=== PATIENT | female | born 1995 | race Caucasian/White ===

== ENCOUNTER 2017-11-11 08:39 | Emergency (ER) | payer OTHER, SELFPAY ==
[2017-11-11 08:40] VITALS: BP 144/82; PULSE 70; RESP 16; TEMP 36.6; O2SAT 99; BMI 23.3
--- NOTE | 2017-11-11 08:52 | ED.VISSUMM ---
- ER Visit Summary Date of Service: 11/11/17 Chief Complaint: Dysuria History of Present Illness: The patient is a 21 F prior history UTIs. 2 day history of dysuria. Denies any vaginal bleeding or discharge. No fever. No back pain. States her last menstrual period was a week ago. Was at the [facility] earlier today at their wellness center states that they dipped her urine that showed white cells. They had no physician available today so they sent her up to the emergency department. Physical Examination: Well-appearing young female. Vital signs are stable and afebrile. H EENT exam unremarkable. Neck nontender. Lungs clear to auscultation bilaterally. Heart regular rate and rhythm no murmur. Abdomen soft and nontender. Normal bowel sounds no peritoneal signs. Moving all 4 extremities. Neurovascular intact. Back nontender. Neurologically awake alert no focal motor deficits. Test Results: Urinalysis shows rare bacteria positive nitrates and gross blood. The microscopic this unremarkable with no white cells or red cells. Emergency Department Course and Treatment: Due to the patient's history of frequent UTIs I will treat her even at the very questionable urinalysis. She will be started on Bactrim 1 pill twice daily for 5 days 10 no refill. Also Pyridium. Treatment Plan: Bactrim and Pyridium. Disposition: Discharge Impression: Acute cystitis This note was generated with [employer] dictation software. It may contain incorrect words, spelling, and punctuation that were not noted in review of the chart prior to signing ED Disposition - Plan for ED Patient: Disposition: Home or Assisted Living Chief Complaint: Complaint Instructions: ED UTI Cystitis Female Prescriptions: Smz/Tmp Ds [Bactrim Ds] 1 tab PO BID #10 tab Referrals: Lane Macdonald MD [STAFF PHYSICIAN] - 1 Week if not improving Additional Instructions: Plenty of water and cranberry juice. Tylenol or Motrin for fever. Bactrim 1 pill twice a day for 5 days. Follow-up if not improving or return to ER if feeling worse.
--- NOTE | 2017-11-11 08:55 | ED.DEP ---
ED Disposition - Plan for ED Patient: Disposition: Home or Assisted Living Chief Complaint: Complaint Instructions: ED UTI Cystitis Female Prescriptions: Phenazopyridine HCl [Pyridium] 200 mg PO Q8H PRN PRN #6 tab PRN Reason: dysuria Smz/Tmp Ds [Bactrim Ds] 1 tab PO BID #10 tab Referrals: Lane Macdonald MD [STAFF PHYSICIAN] - 1 Week if not improving Additional Instructions: Plenty of water and cranberry juice. Tylenol or Motrin for fever. Bactrim 1 pill twice a day for 5 days. Follow-up if not improving or return to ER if feeling worse.
[2017-11-11 09:16] LABS: Mucous, Urine 0 SEEN /hpf (<or=2+); Red Blood Cells-Urine 0 SEEN /hpf (0-5); Squamous Epithelial Cells - UA 0 SEEN /hpf (5-10)
[2017-11-11 09:17] LABS: Color, Urine Yellow (Yellow); Glucose, Dipstick Normal (Normal); Ketone-Dipstick Negative (Negative); Leukocyte Esterase-Dipstick 100 /ul (Negative); Nitrite-Dipstick Positive (Negative); Occult Blood-Urine 10 /ul (Negative); Protein-Dipstick Negative (Negative); Specific Gravity, Urine 1.005 (1.002-1.030); Urine Bilirubin Dipstick Negative (Negative); Urine Clarity Clear (Clear); Urine Urobilinogen Normal (Normal)
[2017-11-11 09:24] LABS: Bacteria RARE /hpf (None Seen); White Blood Cells 0-5 SEEN /hpf (0-5)
[2017-11-11 09:55] VITALS: RESP 16
[2017-11-11] MEDS: Smz/Tmp Ds Tablet 1 TABLET PO (09:55)
== END 2017-11-11 09:56 | disposition home or self-care (01) ==
PROVIDERS: Emergency Provider Emergency Medicine
DX: N30.00 Acute cystitis without hematuria (principal); Z87.440 Personal history of urinary (tract) infections; J30.2 Other seasonal allergic rhinitis; Z79.899 Other long term (current) drug therapy
CPT/HCPCS: 81001; 99283